=== PATIENT | male | born 1945 | race Caucasian/White ===

== ENCOUNTER 2022-12-02 06:14 | Day surgery (SDC) | payer MEDICARE ==
[~2022-12-02] VITALS: Ht 167.6 cm; Wt 95.7 kg
[~2022-12-02 06:14] MED LIST: ALBU2.5V10 INH; ASPI81CH33 PO; ATEN25TA PO; CYCLOPENTOLATE 1% OPHTH SOLN 2ML BTL OD SCH; D-50CAP PO; GLIP10TA6 PO; KP F1200 PO; LOSA25TA13 PO; OFLOXACIN 0.3 % (OCUFLOX) OPTH SOL 5ML OD SCH; PHENYLEPHRINE 2.5% OPHTH SOL 2ML OD SCH; PROPARACAINE 0.5% OPHTH SOL 15ML OD ONE; ROSU20TA61 PO; TREL1AER INH; TROPICAMIDE 1% OPHTH SOLN 15ML OD SCH; UBIQ200C3 PO; VITMTA PO; XARE20TA PO; [UNRECOGNIZED DRUG - OTHER] SQ
[2022-12-02] MEDS ORDERED: LIDOCAINE 1% SDV 5ML VIAL As Ordered ONE (06:39)
[2022-12-02] MEDS ORDERED: BSS IRR 500ML/OMIDRIA 4ML IRR BAG (OR ONLY) As Ordered ONE (06:40)
[2022-12-02] MEDS ORDERED: CEFUROXIME 1MG/0.1ML INTRACAMERAL INJ As Ordered ONE (06:40)
[2022-12-02] MEDS ORDERED: MEPO100S SQ (06:57)
[2022-12-02] MEDS ORDERED: INSULIN LISPRO (NovoLOG) PER UNIT SC PRN (07:40)
[2022-12-02] MEDS ORDERED: fentaNYL 100 MCG/2 ML INJECTION As Ordered ONE (08:01)
[2022-12-02] MEDS ORDERED: MIDAZOLAM INJ 2MG/2ML VIAL As Ordered ONE (08:01)
[2022-12-02 08:10] VITALS: BP 125/76; TEMP 97.9; O2SAT 95
== END 2022-12-02 08:25 | disposition home or self-care (01) ==
LOC: M SDC 06:14
PROVIDERS: ATTEND Ophthalmology
DX: H25.11 Age-related nuclear cataract, right eye (principal); I48.91 Unspecified atrial fibrillation; I25.2 Old myocardial infarction; E11.9 Type 2 diabetes mellitus without complications; I10 Essential (primary) hypertension; Z95.5 Presence of coronary angioplasty implant and graft; Z79.899 Other long term (current) drug therapy; G47.30 Sleep apnea, unspecified
CPT/HCPCS: 66984; J0697; J1097; J2250; J3010; V2632